=== PATIENT | male | born 1965 | race Caucasian/White ===

== ENCOUNTER 2019-12-20 18:06 | Emergency (ER) | payer SELFPAY ==
[~2019-12-20] VITALS: Ht 167.6 cm; Wt 83.0 kg
[2019-12-20 18:07] VITALS: Ht 167.6 cm; Wt 83.0 kg
[2019-12-20 19:50] VITALS: BP 140/78
== END 2019-12-20 19:50 | disposition home or self-care (01) ==
LOC: ED 18:06
DX: T78.1XXA Other adverse food reactions, not elsewhere classified, initial encounter (principal); X58.XXXA Exposure to other specified factors, initial encounter
CPT/HCPCS: J1200; J2930